=== PATIENT | male | born 1970 ===

== ENCOUNTER 2020-05-06 11:39 | Outpatient (CLI) | payer OTHER | END 2020-05-06 11:47 | disposition home or self-care (01) | LOC: LAB 11:39 | PROVIDERS: ATTEND Urology | DX: R97.20 Elevated prostate specific antigen [PSA] (principal) ==

== ENCOUNTER 2020-05-17 07:17 | Outpatient (CLI) | payer OTHER | END 2020-05-17 07:35 | disposition home or self-care (01) | LOC: SONOGRAMA 07:17 | PROVIDERS: ATTEND Urology | DX: D29.1 Benign neoplasm of prostate (principal); R97.20 Elevated prostate specific antigen [PSA] ==

== ENCOUNTER 2021-03-11 16:04 | Outpatient (CLI) | payer OTHER | END 2021-03-11 16:12 | disposition home or self-care (01) | LOC: LAB 16:04 | PROVIDERS: ATTEND Urology | DX: R97.20 Elevated prostate specific antigen [PSA] (principal) ==

== ENCOUNTER 2021-04-11 06:45 | Outpatient (CLI) | payer OTHER | END 2021-04-11 06:48 | disposition home or self-care (01) | LOC: SONOGRAMA 06:45 | PROVIDERS: ATTEND Urology | DX: R97.20 Elevated prostate specific antigen [PSA] (principal); N40.0 Benign prostatic hyperplasia without lower urinary tract symptoms ==